=== PATIENT | male | born 1960 | race Caucasian/White ===

== ENCOUNTER → 2020-04-11 15:13 | Outpatient (BNVA) | payer OTHER, SELFPAY | PROVIDERS: PCP Internal Medicine; Referring Provider Internal Medicine; Visit Provider Internal Medicine Cardiovascular Disease | DX: Z76.89 Persons encountering health services in other specified circumstances (principal) ==

== ENCOUNTER → 2020-05-30 14:22 | Outpatient (BNVA) | payer OTHER, SELFPAY | PROVIDERS: PCP Internal Medicine; Visit Provider Internal Medicine Cardiovascular Disease ==

== ENCOUNTER 2020-11-27 16:49 | Outpatient (REF) | payer OTHER, SELFPAY ==
--- NOTE | ~2020-11-27 | XR_ITS ---
EXAMINATION: XR LUMBAR SPINE XR PELVIS CLINICAL INFORMATION: Pain. COMPARISON: None TECHNIQUE: Three views of the lumbar spine and one view of the pelvis. FINDINGS: LUMBAR SPINE: Bone alignment is normal. No fracture or dislocation is seen. There is mild degenerative disc disease at L5-S1. There is lower lumbar spine facet arthritis. There is evidence of atherosclerotic disease. PELVIS: No fracture, dislocation or bone lesion is seen. There is mild arthritis at both hip joints with small osteophytes. There is enthesopathy proliferative bone reaction adjacent to the iliac crests and inferior pubic rami. XR/XR pelvis 1-2V IMPRESSION: LUMBAR SPINE: Mild degenerative disc disease at L5-S1 and lower lumbar spine facet arthritis. PELVIS: Mild bilateral hip arthritis.
--- NOTE | ~2020-11-27 | XR_ITS ---
EXAMINATION: XR LUMBAR SPINE XR PELVIS CLINICAL INFORMATION: Pain. COMPARISON: None TECHNIQUE: Three views of the lumbar spine and one view of the pelvis. FINDINGS: LUMBAR SPINE: Bone alignment is normal. No fracture or dislocation is seen. There is mild degenerative disc disease at L5-S1. There is lower lumbar spine facet arthritis. There is evidence of atherosclerotic disease. PELVIS: No fracture, dislocation or bone lesion is seen. There is mild arthritis at both hip joints with small osteophytes. There is enthesopathy proliferative bone reaction adjacent to the iliac crests and inferior pubic rami. XR/XR lumbar spine 2-3V IMPRESSION: LUMBAR SPINE: Mild degenerative disc disease at L5-S1 and lower lumbar spine facet arthritis. PELVIS: Mild bilateral hip arthritis.
[2020-11-27 17:39] LABS: MANUAL DIFF FLAG NO
[2020-11-27 17:44] LABS: Basophils Absolute Auto 0.1 X10*3/uL (0.0-0.2); Basophils Percent Auto 0.7 % (0-2); Eosinophils Absolute Auto 0.7 X10*3/uL (0.0-0.4); Eosinophils Percent Auto 8.4 % (0-4); Hematocrit 40.2 % (42-52); Hemoglobin 14.1 g/dl (14.0-18.0); Imm Gran Abs Auto 0.03 X10*3/uL (0.00-0.03); Imm Gran Pct Auto 0.4 % (0.0-0.4); Lymphocytes Absolute Auto 2.8 X10*3/uL (1.2-4.9); Lymphocytes Percent Auto 33.8 % (20-40); Mean Corpuscular HGB Conc 35.1 g/dl (31.0-36.0); Mean Corpuscular Hemoglobin 31.5 pg (27.0-33.0); Mean Corpuscular Volume 89.9 fL (80-98); Mean Platelet Volume 10.6 fL (9.4-12.4); Monocytes Absolute Auto 0.7 X10*3/uL (0.1-1.2); Monocytes Percent Auto 8.4 % (2-11); Neutrophils Percent Auto 48.3 % (45-73); Platelet Count 207 X10*3/uL (160-400); Red Blood Count 4.47 X10*6/uL (4.60-5.80); Red Cell Distribution Width 12.5 % (11.0-16.0); White Blood Count 8.3 X10*3/uL (4.8-10.8)
[2020-11-27 18:02] LABS: Alanine Aminotransferase 45 U/L (0-40); Albumin Level 4.8 g/dL (3.5-5.0); Alkaline Phosphatase 77 U/L (39-117); Anion Gap 14 (12-20); Aspartate Amino Transferase 33 U/L (5-37); Bilirubin Total 0.4 mg/dL (0.0-1.0); Blood Urea Nitrogen 20 mg/dL (9-16); C Reactive Protein 0.09 mg/dL (< or = 0.50); Calcium 9.8 mg/dL (8.4-10.2); Carbon Dioxide 25 mmol/L (22-29); Chloride 107 mmol/L (96-108); Estimated Glomerular Filt Rate 53; Glucose Random 95 mg/dL (60-115); Potassium 4.7 mmol/L (3.3-5.1); Sodium 141 mmol/L (135-145); Total Protein 7.7 g/dL (6.5-8.0)
== END 2020-11-27 16:50 | disposition home or self-care (01) ==
LOC: HO.XRAY 16:49
PROVIDERS: PCP Internal Medicine; Visit Provider Internal Medicine
DX: M54.5 Low back pain (principal); R10.2 Pelvic and perineal pain
CPT/HCPCS: 36415; 72100; 72170; 80053; 82550; 85025; 86140

== ENCOUNTER 2020-12-26 16:32 | Outpatient (REF) | payer OTHER, SELFPAY ==
--- NOTE | ~2020-12-26 | CT_ITS ---
EXAMINATION: CT ABDOMEN AND PELVIS WITHOUT CONTRAST CLINICAL INFORMATION: Low back pain. Elevated CPK and creatinine COMPARISON: None TECHNIQUE: Multidetector volumetric imaging was performed from the superior aspect of the liver through the pubic symphysis. Sagittal and coronal reformatted images were obtained on the technologist's workstation. This CT examination was performed using dose optimization techniques as appropriate, variously including the following: *Automated exposure control *Adjustment of mA and/or kV according to patient size (this includes techniques or standardized protocols for targeted exams where dose is matched to indication/reason for exam; i.e. extremities or head) *Use of iterative reconstruction technique DLP: 665 mGy-cm FINDINGS: LUNG BASES: The lung bases are clear. There is coronary artery calcification. LIVER, GALLBLADDER, AND BILIARY TREE: The liver is normal in size, shape, and attenuation. No focal hepatic lesion or biliary ductal dilatation is present. The gallbladder is unremarkable with no evidence of radiopaque gallstones, gallbladder wall thickening, or obvious pericholecystic inflammatory changes. PANCREAS: Unremarkable. SPLEEN: Unremarkable. ADRENAL GLANDS: Unremarkable. KIDNEYS AND URETERS: There is a small 2 mm stone in the upper pole of the right kidney. There is mild fullness of the right renal pelvis. There is a 6 mm low-attenuation lesion exophytic to the posterior mid right kidney.. The left kidney is unremarkable. BLADDER: Unremarkable. GASTROINTESTINAL TRACT: The small and large bowel are unremarkable. The appendix is unremarkable. ABDOMINAL WALL: No significant hernia is appreciated. LYMPH NODES: Normal. VASCULAR: Unremarkable. PELVIC VISCERA: Unremarkable. OSSEOUS STRUCTURES: There are degenerative changes of the spine and hip joints. CT/CT abdomen pelvis wo con IMPRESSION: Small nonobstructing right renal stone. Probable small right renal cyst.
== END 2020-12-26 16:33 | disposition home or self-care (01) ==
LOC: HO.CT 16:32
PROVIDERS: Visit Provider Internal Medicine
DX: R10.11 Right upper quadrant pain (principal); M54.5 Low back pain; R74.8 Abnormal levels of other serum enzymes
CPT/HCPCS: 74176

== ENCOUNTER 2021-08-15 09:34 | Outpatient (REF) | payer OTHER, SELFPAY ==
--- NOTE | ~2021-08-15 | XR_ITS ---
EXAMINATION: XR SHOULDER, LEFT CLINICAL INFORMATION: Pain COMPARISON: None TECHNIQUE: AP external rotation, Grashey, scapular Y, and axillary views of the left shoulder. FINDINGS: Bone alignment is normal. No fracture or dislocation is seen. The glenohumeral joint is normal. There is arthritis at the acromioclavicular joint. There are soft tissue calcifications or ossifications adjacent to the greater tuberosity suggestive of calcific tendinitis or bursitis. XR/XR shoulder LT min 2V IMPRESSION: Arthritis at the acromioclavicular joint. Soft tissue calcifications adjacent to the greater tuberosity suggestive of calcific tendinitis or bursitis.
== END 2021-08-15 09:35 | disposition home or self-care (01) ==
LOC: HO.XRAY 09:34
PROVIDERS: PCP Internal Medicine; Visit Provider Internal Medicine
DX: M25.512 Pain in left shoulder (principal)
CPT/HCPCS: 73030

== ENCOUNTER → 2021-09-10 08:49 | Outpatient (BNVA) | payer OTHER, SELFPAY | PROVIDERS: PCP Internal Medicine; Visit Provider Orthopaedic Surgery | DX: M75.32 Calcific tendinitis of left shoulder (principal); M19.019 Primary osteoarthritis, unspecified shoulder | CPT/HCPCS: 20610; J1100 ==

== ENCOUNTER 2021-12-18 06:52 | Outpatient (REF) | payer OTHER, SELFPAY ==
[2021-12-18 06:56] LABS: MANUAL DIFF FLAG NO
[2021-12-18 07:09] LABS: Basophils Absolute Auto 0.1 X10*3/uL (0.0-0.2); Basophils Percent Auto 1.2 % (0-2); Eosinophils Absolute Auto 0.7 X10*3/uL (0.0-0.4); Eosinophils Percent Auto 9.6 % (0-4); Hematocrit 43.4 % (42.0-52.0); Hemoglobin 15.1 g/dl (14.0-18.0); Imm Gran Abs Auto 0.03 X10*3/uL (0.00-0.03); Imm Gran Pct Auto 0.4 % (0.0-0.4); Lymphocytes Absolute Auto 2.2 X10*3/uL (1.2-4.9); Lymphocytes Percent Auto 32.3 % (20-40); Mean Corpuscular HGB Conc 34.8 g/dl (31.0-36.0); Mean Corpuscular Volume 89.1 fL (80.0-98.0); Mean Platelet Volume 10.3 fL (9.4-12.4); Monocytes Absolute Auto 0.6 X10*3/uL (0.1-1.2); Monocytes Percent Auto 8.2 % (2-11); Neutrophils Absolute Auto 3.3 x10*3/uL (2.0-8.3); Neutrophils Percent Auto 48.3 % (45-73); Platelet Count 194 X10*3/uL (160-400); Red Blood Count 4.87 X10*6/uL (4.60-5.80); Red Cell Distribution Width 12.6 % (11.0-16.0); White Blood Count 6.8 X10*3/uL (4.8-10.8)
[2021-12-18 07:34] LABS: Alanine Aminotransferase 47 U/L (0-40); Albumin Level 4.5 g/dL (3.5-5.0); Alkaline Phosphatase 76 U/L (39-117); Anion Gap 15 (12-20); Aspartate Amino Transferase 32 U/L (5-37); Bilirubin Total 0.6 mg/dL (0.0-1.0); Blood Urea Nitrogen 18 mg/dL (9-16); Calcium 9.2 mg/dL (8.4-10.2); Carbon Dioxide 27 mmol/L (22-29); Chloride 105 mmol/L (96-108); Cholesterol 171 mg/dL; Estimated Glomerular Filt Rate > 60; Glucose Fasting 114 mg/dL (60-99); HDL Cholesterol 46 mg/dL; LDL Cholesterol Calculated 96 mg/dl; Potassium 4.8 mmol/L (3.3-5.1); Sodium 142 mmol/L (135-145); Total Protein 7.4 g/dL (6.5-8.0); Triglycerides 148 mg/dL
[2021-12-18 07:58] LABS: Prostate Specific Antigen 0.44 ng/mL (<0.05-4.0)
== END 2021-12-18 06:53 | disposition home or self-care (01) ==
LOC: HO.LAB 06:52
PROVIDERS: PCP Internal Medicine; Visit Provider Internal Medicine
DX: Z00.00 Encounter for general adult medical examination without abnormal findings (principal); Z12.5 Encounter for screening for malignant neoplasm of prostate
CPT/HCPCS: 36415; 80053; 80061; 84153; 85025

== ENCOUNTER 2022-02-05 14:35 | Outpatient (REF) | payer OTHER, SELFPAY ==
[2022-02-05 15:32] LABS: Estimated Average Glucose 105 mg/dL; Hemoglobin A1c % 5.3 %
[2022-02-05 15:55] LABS: Alanine Aminotransferase 37 U/L (0-40); Albumin Level 4.8 g/dL (3.5-5.0); Alkaline Phosphatase 70 U/L (39-117); Anion Gap 15 (12-20); Aspartate Amino Transferase 28 U/L (5-37); Bilirubin Total 0.7 mg/dL (0.0-1.0); Blood Urea Nitrogen 14 mg/dL (9-16); C Reactive Protein 0.06 mg/dL (< or = 0.50); Calcium 9.6 mg/dL (8.4-10.2); Carbon Dioxide 24 mmol/L (22-29); Chloride 106 mmol/L (96-108); Estimated Glomerular Filt Rate > 60; Glucose Random 97 mg/dL (60-115); Magnesium 2.2 mg/dL (1.6-2.6); Potassium 4.7 mmol/L (3.3-5.1); Sodium 140 mmol/L (135-145); Total Protein 7.5 g/dL (6.5-8.0)
== END 2022-02-05 14:36 | disposition home or self-care (01) ==
LOC: HO.LAB 14:35
PROVIDERS: PCP Internal Medicine; Visit Provider Internal Medicine
DX: R42 Dizziness and giddiness (principal); I10 Essential (primary) hypertension; R73.03 Prediabetes
CPT/HCPCS: 36415; 80053; 83036; 83735; 86140

== ENCOUNTER → 2022-03-26 13:58 | Outpatient (BNVA) | payer OTHER, SELFPAY | PROVIDERS: PCP Internal Medicine; Visit Provider Internal Medicine Cardiovascular Disease | DX: I25.10 Atherosclerotic heart disease of native coronary artery without angina pectoris (principal); I10 Essential (primary) hypertension | CPT/HCPCS: 93005 ==

== ENCOUNTER 2022-08-05 14:12 | Outpatient (REF) | payer OTHER, SELFPAY ==
--- NOTE | ~2022-08-05 | XR_ITS ---
EXAMINATION: XR FOOT, LEFT CLINICAL INFORMATION: Left foot pain. COMPARISON: None available. TECHNIQUE: AP, lateral, and oblique views of the left foot. FINDINGS: There is no visible acute fracture, dislocation or subluxation. Small retrocalcaneal enthesophyte is seen. The ankle mortise and subtalar joints are normal. No visible fracture or dislocation seen. Mild loss of PIP and DIP joint space is seen but no bony erosive changes. There is a fracture fragment lateral to the DIP joint 4th digit likely old injury. Vascular artery calcifications seen throughout the ankle. No soft tissue swelling seen. XR/XR foot LT min 3V IMPRESSION: Small retrocalcaneal enthesophyte. No visible acute fracture, dislocation or subluxation seen. Small bone fragment lateral to the DIP joint 4th digit likely old injury. Correlate clinically. No abnormal soft tissue swelling. Especially no abnormality seen along the proximal foot.
== END 2022-08-05 14:13 | disposition home or self-care (01) ==
LOC: HO.XRAY 14:12
PROVIDERS: PCP Internal Medicine; Visit Provider Internal Medicine
DX: M79.672 Pain in left foot (principal)
CPT/HCPCS: 73630

== ENCOUNTER 2022-11-27 16:50 | Outpatient (REF) | payer OTHER, SELFPAY ==
[2022-11-27 17:03] LABS: MANUAL DIFF FLAG NO
[2022-11-27 18:29] LABS: Basophils Absolute Auto 0.1 X10*3/uL (0.0-0.2); Basophils Percent Auto 0.8 % (0-2); Eosinophils Absolute Auto 0.5 X10*3/uL (0.0-0.4); Eosinophils Percent Auto 5.2 % (0-4); Hemoglobin 15.6 g/dl (14.0-18.0); Imm Gran Abs Auto 0.02 X10*3/uL (0.00-0.03); Imm Gran Pct Auto 0.2 % (0.0-0.4); Lymphocytes Percent Auto 21.6 % (20-40); Mean Corpuscular HGB Conc 34.7 g/dl (31.0-36.0); Mean Corpuscular Hemoglobin 31.6 pg (27.0-33.0); Mean Corpuscular Volume 91.1 fL (80.0-98.0); Mean Platelet Volume 10.6 fL (9.4-12.4); Monocytes Absolute Auto 0.7 X10*3/uL (0.1-1.2); Neutrophils Absolute Auto 5.9 x10*3/uL (2.0-8.3); Neutrophils Percent Auto 64.2 % (45-73); Platelet Count 192 X10*3/uL (160-400); Red Blood Count 4.94 X10*6/uL (4.60-5.80); Red Cell Distribution Width 12.7 % (11.0-16.0); White Blood Count 9.2 X10*3/uL (4.8-10.8)
[2022-11-27 18:34] LABS: Alanine Aminotransferase 42 U/L (0-40); Albumin Level 4.6 g/dL (3.5-5.0); Alkaline Phosphatase 75 U/L (39-117); Anion Gap 18 (12-20); Aspartate Amino Transferase 28 U/L (5-37); Bilirubin Total 0.6 mg/dL (0.0-1.0); Blood Urea Nitrogen 16 mg/dL (9-16); Calcium 9.8 mg/dL (8.4-10.2); Carbon Dioxide 21 mmol/L (22-29); Chloride 106 mmol/L (96-108); Estimated Glomerular Filt Rate > 60; Glucose Random 100 mg/dL (60-115); Potassium 4.2 mmol/L (3.3-5.1); Sodium 141 mmol/L (135-145); Total Protein 7.8 g/dL (6.5-8.0)
== END 2022-11-27 16:51 | disposition home or self-care (01) ==
LOC: HO.LAB 16:50
PROVIDERS: PCP Internal Medicine; Visit Provider Internal Medicine
DX: R21 Rash and other nonspecific skin eruption (principal); T14.8XXA Other injury of unspecified body region, initial encounter; W57.XXXA Bitten or stung by nonvenomous insect and other nonvenomous arthropods, initial encounter
CPT/HCPCS: 36415; 80053; 85025; 86140

== ENCOUNTER 2022-12-03 14:06 | Outpatient (REF) | payer OTHER, SELFPAY ==
[2022-12-04 15:13] LABS: Lyme Blot 4.57 index
[2022-12-04 16:05] LABS: Lyme Abs Screen POSITIVE
[2022-12-04 21:49] LABS: 18 KD (IgG) Band NON-REACTIVE; 23 KD (IgG) Band NON-REACTIVE; 23 KD (IgM) Band REACTIVE; 28 KD (IgG) Band NON-REACTIVE; 30 KD (IgG) Band NON-REACTIVE; 39 KD (IgM) Band NON-REACTIVE; 39KD (IgG) Band NON-REACTIVE; 41 KD (IgM) Band NON-REACTIVE; 41KD (IgG) Band NON-REACTIVE; 45 KD (IgG) Band NON-REACTIVE; 58 KD (IgG) Band REACTIVE; 66 KD (IgG) Band NON-REACTIVE; 93 KD (IgG) Band NON-REACTIVE; Lyme IgG Blot Interp NEGATIVE (NEGATIVE); Lyme IgM Blot Interp NEGATIVE (NEGATIVE)
== END 2022-12-03 14:07 | disposition home or self-care (01) ==
LOC: HO.LAB 14:06
PROVIDERS: PCP Internal Medicine; Visit Provider Internal Medicine
DX: S40.861A Insect bite (nonvenomous) of right upper arm, initial encounter (principal)
CPT/HCPCS: 36415; 86617; 86618

== ENCOUNTER 2023-03-18 12:23 | Outpatient (REF) | payer OTHER, SELFPAY ==
[2023-03-18 14:39] LABS: Cholesterol 129 mg/dL (<200); HDL Cholesterol 39 mg/dL (>40); LDL Cholesterol Calculated 63 mg/dL (<100); Triglycerides 138 mg/dL (<150)
[2023-03-20 17:29] LABS: CRP High Sensitivity 0.5 mg/L
== END 2023-03-18 12:24 | disposition home or self-care (01) ==
LOC: HO.LAB 12:23
PROVIDERS: PCP Internal Medicine; Visit Provider Internal Medicine Cardiovascular Disease
DX: I25.10 Atherosclerotic heart disease of native coronary artery without angina pectoris (principal); E78.5 Hyperlipidemia, unspecified
CPT/HCPCS: 36415; 80061; 86141

== ENCOUNTER 2023-03-20 14:47 | Outpatient (AMB) | payer OTHER, SELFPAY ==
[2023-03-20 14:56] VITALS: BP 140/86; PULSE 63; BMI 31.4
--- NOTE | 2023-03-20 14:56 | A.OFFVIS_ITS ---
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 He said he ran out of his metoprolol for about 10-11 months. He has not been taking. Is notice some elevated blood pressures systolic 130/88 rate although he thinks the other times blood pressures are within normal limits. He has no cardiac symptoms. Remains active and still plays ice hockey with his peers and goes for hiking [place] a mountain [place] 2-3 months. Denies any exertional chest pain. No shortness of breath, orthopnea, PND. No lightheadedness, syncope. 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 [employer] Review of Systems Const Denies chills, Denies fatigue, Denies fever(s), Denies frequent falls, Denies weakness, Denies weight gain and Denies weight loss ENT Denies dizziness Card Denies chest pain, Denies leg edema, Denies lightheadedness, Denies palpitations, Denies dyspnea, Denies dyspnea on exertion, Denies orthopnea and Denies other (loss of consciousness) Resp Denies cough, Denies dyspnea and Denies dyspnea on exertion GI Denies hematochezia and Denies change in stool character Musc Denies abnormal gait, Denies muscle weakness, Denies numbness, Denies radiating pain into limb and Denies tingling Neuro Denies abnormal gait, Denies dizziness, Denies frequent falls, Denies numbness, Denies tingling and Denies weakness Endo Denies fatigue and Denies palpitations Physical Exam Vital Signs: Last Vital Signs Pulse 63 03/20/23 14:56 BP 140/86 H 03/20/23 14:56 BMI result Body Mass Index 31.4 Const General: cooperative, comfortable, no acute distress, well developed, alert and awake Nutritional Appearance: well nourished and overweight Orientation/consciousness: patient oriented x3 Limitations: no limitations HEENT Head: Yes normocephalic and Yes atraumatic Eyes General: appearance normal, both eyes and all related structures Neck Neck: Yes trachea midline, Yes supple and Yes no JVD Chest Chest palpation & inspection: normal inspection of the chest Resp Effort & Inspection: normal respiratory effort Auscultation: clear to auscultation bilaterally Cardio Jugular venous distension: no JVD Palpation: normal PMI Rate: regular rate Rhythm: regular rhythm Heart sounds: S1 normal heart sound present, S2 normal heart sound present, no click, no gallops and Murmur heart sound present systolic early GI Auscultation: normal bowel sounds Skin General skin exam: no rashes or lesions noted Neuro General: patient oriented x3 and no focal motor deficits Extrem General: Yes no clubbing, cyanosis or edema Psych Appearance: grossly normal Affect: Anxious affect present Assessment & Plan Assessment & Plan (1) CAD (coronary artery disease): Code(s): I25.10 - Atherosclerotic heart disease of [place] coronary artery without angina pectoris Plan: CAD status post drug-eluting stent to RCA. This was done for acute coronary syndrome. He has acid a stenosis LAD but currently has no symptoms related to it. No further workup is indicated at this point time. Consider follow-up myocardial perfusion imaging next year. Continue aggressive risk factor modification importance of this was discussed. LDL is well optimized at 63 mg/dL. Continue lifelong aspirin therapy. More aggressive blood pressure control is recommended. Advised to call me with any new symptoms. There is a presence of ejection systolic murmur which is suggestive either aortic valve sclerosis or early mild stenosis. Will obtain echocardiogram in near future. (2) HTN (hypertension): Code(s): I10 - Essential (primary) hypertension Plan: Hypertension which is borderline optimized. Today's blood pressure reading was elevated. Advised to monitor blood pressure for the next month at home. Change amlodipine to 10 mg daily. Advise low-salt diet. Advised stress mitigation strategies. Advised to drop of the log in a month's time to see whether he would benefit from additional therapy. May consider addition of angiotensin receptor patricia if blood pressure remains elevated. Follow up in the clinic in 1 year's time, sooner p.r.n.. Thank you for allowing me to partake in his care Orders: Orders CA echo transthoracic complete Today I25.10 - Atherosclerotic heart disease of [place] coronary artery without angina pectoris, R01.1 - Cardiac murmur, unspecified Medications: New amlodipine 10 mg PO DAILY 90 tabs 3RF Refilled rosuvastatin 40 mg PO DAILY 90 days 90 tabs 3RF Discontinued amlodipine Discontinued Reason: Doctor's Order 5 mg PO BID 90 days 180 tabs 1RF Coding Level of Care Code Est Pt Level 4 (31779) Diagnoses CAD (coronary artery disease) I25.10 HTN (hypertension) I10
== END 2023-03-20 15:18 | disposition home or self-care (01) ==
PROVIDERS: Visit Provider Internal Medicine Cardiovascular Disease
DX: I25.10 Atherosclerotic heart disease of native coronary artery without angina pectoris (principal); I10 Essential (primary) hypertension
CPT/HCPCS: 93010; 99214

== ENCOUNTER → 2023-03-20 14:47 | Outpatient (BNVA) | payer OTHER, SELFPAY | PROVIDERS: Visit Provider Internal Medicine Cardiovascular Disease | DX: I25.10 Atherosclerotic heart disease of native coronary artery without angina pectoris (principal); I10 Essential (primary) hypertension | CPT/HCPCS: 93005 ==

== ENCOUNTER → 2023-04-16 08:03 | Outpatient (REF) | payer OTHER, SELFPAY ==
--- NOTE | 2023-04-16 08:05 | CA_ITS ---
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 Study Quality: Technically Difficult ECG Rhythm: Sinus Conclusions: - 1. Normal LV ejection fraction of 60 65% with grade 1 diastolic dysfunction 2. Calcific aortic valve changes noted with early mild aortic stenosis 3. Mildly dilated ascending aorta 3.8 cm 4. No gross pericardial effusion Findings Left Ventricle Normal left ventricular size, thickness, and systolic function. The visually estimated ejection fraction is between 60-65%. Spectral Doppler is indicative of an impaired relaxation filling pattern. E/E prime ratio is <8, consistent with normal filling pressures. Evidence suggests grade I (mild) diastolic dysfunction. There is mild septal asymmetric hypertrophy. Peak GLS is -18.1%, within normal limits. Wall Motion Rest Echo Findings The basal inferior and basal inferoseptal segments are hypokinetic. All other scored wall segments showed normal motion. Right Ventricle Normal right ventricular cavity size and systolic function. Atria The left atrium is mildly dilated. The right atrium is normal in size. Aortic Valve There is mild calcification of the aortic valve. There is mild thickening of the aortic valve. The peak aortic gradient is 22 mmHg.The mean gradient is 11 mmHg. There is no aortic valve regurgitation. Mitral Valve There is mild anterior and posterior mitral leaflet thickening. There is mild mitral annular calcification. There is trace mitral valve regurgitation. There is no mitral valve stenosis. Pulmonic Valve The pulmonic valve is likely normal. Tricuspid Valve Normal tricuspid valve structure. Tricuspid regurgitation envelope is inadequate for calculation of right ventricular systolic pressure. Normal right atrial pressure. Great Vessels The pulmonary artery was not well visualized. There is mild dilatation of the ascending aorta measuring 3.80 cm. Venous The inferior vena cava is normal in size and collapses greater than 50% with inspiration. Pericardium/Pleural There is no evidence of pericardial effusion. Prior Study Comparison Changes noted compared to prior study dated: 03/11/2019. Increased gradient across aortic valve is been suggestive early aortic stenosis. Mildly dilated ascending aorta Measurements 2D Linear Measurements IVSd: 1.66 0.6-0.9/0.6-1.0 cm LVIDd: 4.71 3.9-5.3/4.2-5.9 cm LVIDd Index: 2.10 2.4-3.2/2.2-3.1 cm/m2 LVIDs: 3.35 2.0-3.6 cm LVPWd: 1.09 0.7-1.1 cm LA Diam: 3.60 2.7-3.8/3.0-4.0 cm LAIDs Index: 1.61 1.5-2.3 cm/m2 LV Mass: 323.10 67-162/88-224 g LV Mass Index: 144.24 43-95/49-115 g/m2 LVOT Diam: 2.40 3.0+(-)1.3 cm 2D Systolic Function EF 4C: 64.00 >55% EF 2C: 65.30 >55% EF BiP: 64.70 >55% Mitral Valve MV Pk E: 0.92 MV PK A: 0.74 MV Decel Time: 254.00 E/A: 1.20 E'Lateral: 10.40 E'Medial: 7.94 E/E' Med: 11.50 E/E' Lat: 8.80 PHT: 74.00 MVA PHT: 2.97 Decel Love: 3.62 Aortic Valve AoV Pk Esteban: 2.32 AoV Mn Esteban: 1.62 AoV VTI: 0.53 AoV Pk Grad: 22.00 Aov Mn Grad: 11.00 BUD Cont.VTI: 2.13 LVOT LVOT Pk Esteban: 1.15 LVOT Mn Esteban: 0.77 LVOT VTI: 0.25 LVOT Pk Grad: 5.00 LVOT Mn Grad: 3.00 LVOT Diam: 2.40 LVOT Area: 4.52 Diastolic Function MV Pk E: 0.92 MV Pk A: 0.74 E/A: 1.20 E'Medial: 7.94 E/E' Med: 11.50 E' Laterial: 10.40 E/E' Lat: 8.80 Right Ventricle TAPSE (mm): 23.90 TVS' Esteban: 13.60 Tricuspid Valve RA Press: 3.00 Great Vessels Aorta Sinus of Valsalva: 3.59 2.0-3.[address] [place]: 2.37 1.7-3.4 cm Ao Asc: 3.80 2.1-3.4 cm Ao Arch: 3.30 Updated in Other Vendor System with Status of Final Sacha Edward MD electronically signed on 04/16/2023 3:43:43 PM with status of Final
== END ==
LOC: HO.CARD 08:03
PROVIDERS: PCP Internal Medicine; Visit Provider Internal Medicine Cardiovascular Disease
DX: I25.10 Atherosclerotic heart disease of native coronary artery without angina pectoris (principal); R01.1 Cardiac murmur, unspecified
CPT/HCPCS: 93306; 93356

== ENCOUNTER → 2023-04-16 08:05 | Outpatient (BNV) | payer OTHER, SELFPAY | PROVIDERS: PCP Internal Medicine; Visit Provider Internal Medicine Cardiovascular Disease | DX: I35.0 Nonrheumatic aortic (valve) stenosis (principal); I34.81 Nonrheumatic mitral (valve) annulus calcification | CPT/HCPCS: 93306 ==

== ENCOUNTER 2024-02-27 07:17 | Day surgery (SDC) | payer OTHER, SELFPAY ==
[2024-02-25 11:36] VITALS: BMI 31.6
[2024-02-27 07:57] VITALS: BP 145/85; PULSE 58; RESP 18; TEMP 36.6; O2SAT 96; BMI 31.5
[2024-02-27] MEDS: Lactated Ringers 1,000 ML 100 ML IVCONT (08:11)
--- NOTE | 2024-02-27 09:01 | P.HPSUR_ITS ---
Pre-Procedural Eval Section A - 24 Hr Update-Section A only Date of Service: 02/27/24 Section B - Complete if H&P > 30 days Chief Complaint: Encounter for screening for malignant neoplasm of Details of Present Illness: see H&P no changes Relevant Family History (Specify if Yes): No Relevant Social History: None Present Medications: see Short Stay Collaborative assessment Medical History: No relevant PMH History of Previous Operations: No relevant previous surgery Allergies: Allergies Allergy/AdvReac Type Severity Reaction Status Date / Time No Known Allergies Allergy Verified 09/10/21 08:55 Review of Systems Sugical H&P ROS: Negative: Constitution, Cardiovascular, Respiratory, Neurological, Psychiatric, Hem-Onc, Allergic/Immunologic, Gastrointestinal, Genitourinary, Musculoskeletal, Integumentary, Endocrine and Eyes/Ears/No se/Throat Exam Surgical H&P Exam: Normal: HEENT, Normal: Heart, Normal: Lungs, Normal: Extremities, Normal: Abdomen, Normal: Skin and Normal: Neurological Plan Diagnosis/Plan: Unchanged I have reviewed the history and physical and performed a pertinent physical examination on my patient. No changes have occurred unless specified. Time Spent With Patient Time: Total time managing care of this patient today ____ minutes.
--- NOTE | 2024-02-27 09:05 | HO.ANESPROP2 ---
Documented by User: Elyse Espinosa NP 02/26/24 08:50 HPI - Anesthesia Eval Consult details Narrative: 63yo M for Colonoscopy Follows [facility] [place] Cardiology for CAD s/p stent 2019. Early aortic stenosis. Sees yearly. Last seen 03/2023, stable. Echo post visit - only change is early aortic stenosis. [facility] Active Problems Active Problems: All Active Problems Acromioclavicular arthrosis (Acute) Calcific tendonitis of left shoulder (Acute) Osteoarthritis of right shoulder (Acute) Atypical angina (Acute) CAD (coronary artery disease) (Acute) HTN (hypertension) (Acute) Hyperlipidemia (Acute) Past Medical History Medical History (Updated 02/25/24 @ 11:24 by Vania Enriquez RN) Arthritis GERD (gastroesophageal reflux disease) HTN (hypertension) Hyperlipidemia CAD (coronary artery disease) Family History Family History Father CVD (cardiovascular disease) Mother CVD (cardiovascular disease) HTN (hypertension) Surgical History Surgical History (Updated 02/25/24 @ 11:25 by Vania Enriquez RN) History of heart artery stent Hx of cardiac cath Social History Social History Patient Tobacco Use Status: Never used Tobacco Are you DNR?: No Advance Directives: No Advance Directives Information Provided: Yes Current occupational status: employed 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, 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 [employer] Allergies Allergy/AdvReac Type Severity Reaction Status Date / Time No Known Allergies Allergy Verified 09/10/21 08:55 Home Medications ?Medication ?Instructions ?Recorded ?Confirmed ?Last Taken ?Type amlodipine 5 mg-benazepril 10 mg 1 cap PO DAILY 02/25/24 02/25/24 Unknown History capsule cholecalciferol (vitamin D3) 125 5,000 unit PO DAILY 02/25/24 02/25/24 Unknown History mcg (5,000 unit) tablet (Vitamin D3) multivitamin 1 tab PO DAILY 02/25/24 02/25/24 Unknown History omeprazole 20 mg tablet,delayed 20 mg PO DAILY 02/25/24 02/25/24 Unknown History release Exam Height,Weight and Vital Signs: Height 6 ft Weight 105.687 kg Narrative Narrative: ECHO 04/2023 Conclusions: - 1. Normal LV ejection fraction of 60 65% with grade 1 diastolic dysfunction 2. Calcific aortic valve changes noted with early mild aortic stenosis 3. Mildly dilated ascending aorta 3.8 cm 4. No gross pericardial effusion Assessment and Plan Assessment Anesthesia Assessment: Chart Reviewed Documented by User: Bhavani Gibson DO 02/27/24 09:05 [facility] Past Medical History Medical History (Updated 02/25/24 @ 11:24 by Vania Enriquez, RN) Arthritis GERD (gastroesophageal reflux disease) HTN (hypertension) Hyperlipidemia CAD (coronary artery disease) Family History Family History Father CVD (cardiovascular disease) Mother CVD (cardiovascular disease) HTN (hypertension) Family history of problems with anesthesia: No Surgical History Surgical History (Updated 02/25/24 @ 11:25 by Vania Enriquez RN) History of heart artery stent Hx of cardiac cath History of Problems with Anesthesia: No Social History Social History Patient Tobacco Use Status: Never used Tobacco Are you DNR?: No Advance Directives: No Advance Directives Information Provided: Yes Current occupational status: employed 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, 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 [employer] Allergies Allergy/AdvReac Type Severity Reaction Status Date / Time No Known Allergies Allergy Verified 09/10/21 08:55 Home Medications ?Medication ?Instructions ?Recorded ?Confirmed ?Last Taken ?Type amlodipine 5 mg-benazepril 10 mg 1 cap PO DAILY 02/25/24 02/25/24 Unknown History capsule cholecalciferol (vitamin D3) 125 5,000 unit PO DAILY 02/25/24 02/25/24 Unknown History mcg (5,000 unit) tablet (Vitamin D3) multivitamin 1 tab PO DAILY 02/25/24 02/25/24 Unknown History omeprazole 20 mg tablet,delayed 20 mg PO DAILY 02/25/24 02/25/24 Unknown History release Exam Exam Date and Time: 0903 Height,Weight and Vital Signs: Height 6 ft Weight 105.687 kg Vital Signs Temperature 97.8 F 02/27/24 07:57 Pulse Rate 58 02/27/24 07:57 Respiratory Rate 18 02/27/24 07:57 Blood Pressure 145/85 H 02/27/24 07:57 Pulse Oximetry 96 02/27/24 07:57 Oxygen Delivery Method Room Air 02/27/24 07:57 Temperature 97.8 F 02/27/24 07:57 Pulse Rate 58 02/27/24 07:57 Respiratory Rate 18 02/27/24 07:57 Blood Pressure 145/85 H 02/27/24 07:57 Pulse Oximetry 96 02/27/24 07:57 Oxygen Delivery Method Room Air 02/27/24 07:57 Airway Mallampati Class: II TM Dist: >3cm Neck ROM: Full Loose/Missing/Broken Teeth: No (patient denies any loose or broken teeth) Heart: S1S2 Lungs: CTAB Assessment and Plan Assessment Anesthesia Assessment: Anesthesia Plan Discussed and Chart Reviewed Final Anesthetic Review Family History of Problems with Anesthesia: No History of Problems with Anesthesia: No NPO: Yes ASA Class: II Final Preanesthetic Review: No Changes in Pt Med Stat, Meds/Allgs Chart Reviewed, Consent Obtained/Reviewed and Anes Risks/Benef Reviewed Patient Risk: Low Procedure Risk: Low Anesthetic Plan Anesthetic Plan: MAC: and Agree w/ Assess. and Plan Disposition: Standard PACU
[2024-02-27 09:36] VITALS: BP 112/67; PULSE 71; RESP 16; TEMP 36.4; O2SAT 97
[2024-02-27 09:51] VITALS: BP 127/74; PULSE 65; RESP 18; TEMP 36.3; O2SAT 98
--- NOTE | 2024-02-27 10:56 | OP_ITS ---
DATE OF SERVICE: 02/27/2024 SURGEON: Shravan Alberto MD INDICATIONS: Colon cancer screening. PREOPERATIVE DIAGNOSIS: POSTOPERATIVE DIAGNOSIS: PROCEDURE PERFORMED: Colonoscopy to the cecum with a snare polypectomy. ESTIMATED BLOOD LOSS: COMPLICATIONS: ANESTHESIA: Monitored anesthesia care. ASSISTANTS: SPECIMENS: DESCRIPTION OF PROCEDURE: A history and physical was performed. The risks and benefits of the procedure were explained to the patient. Informed consent was obtained. The patient was placed in the left lateral decubitus position. A digital rectal exam was performed and was found to be normal. The Olympus pediatric video colonoscope was introduced into the rectum and advanced to the cecum. The cecum was identified by transillumination, palpation, identification of the ileocecal valve. Examination was performed. The scope was removed. He tolerated the procedure well and was returned to the recovery area in stable condition. FINDINGS: The terminal ileum was not examined. The visualized colonic mucosa was normal. The quality of the prep was fair with some retained liquid stool, which was washed and suctioned. A single polyp measuring less than 10 mm was identified at 50 cm from the anal verge, removed with a snare. No other polyps were identified. Retroflexed examination was normal. IMPRESSION: Colon polyp. RECOMMENDATION: 1. Follow up the biopsy results. MD BRANDI Mcdonald/MARLIYNL / [id number]
== END 2024-02-27 10:12 | disposition home or self-care (01) ==
PROVIDERS: PCP Internal Medicine; Visit Provider Internal Medicine Gastroenterology
PROC: 0DJD8ZZ Inspection of Lower Intestinal Tract, Via Natural or Artificial Opening Endoscopic (ICD-10-PCS; CPT 45378; principal; 2024-02-27 09:20)
DX: Z12.11 Encounter for screening for malignant neoplasm of colon (principal); Z86.0101 Personal history of adenomatous and serrated colon polyps; D12.5 Benign neoplasm of sigmoid colon; I10 Essential (primary) hypertension; E78.5 Hyperlipidemia, unspecified; I25.10 Atherosclerotic heart disease of native coronary artery without angina pectoris; Z95.5 Presence of coronary angioplasty implant and graft; K21.9 Gastro-esophageal reflux disease without esophagitis; M19.90 Unspecified osteoarthritis, unspecified site; Z79.82 Long term (current) use of aspirin; Z79.899 Other long term (current) drug therapy
CPT/HCPCS: 45385; 88305; J2003; J2371; J2704

== ENCOUNTER 2024-03-16 14:55 | Outpatient (AMB) | payer OTHER, SELFPAY ==
--- NOTE | 2024-03-16 14:55 | A.OFFVIS_ITS ---
Vital Signs 03/16/24 14:56 Height 6 ft Weight 236 lb 12.423 oz BMI 32.1 BP 130/72 Blood Pressure Location Lt brachial Position Sitting Pulse 60 Intake Visit Reasons: 1 year fu Intake Note: 1 yr f/u. Pt has no concerns. 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 He is remaining extremely functional. Plays ice hockey once a week without any exertional symptoms. Recently traveled to [place] [place] and he said he walk 52 miles in 4 days. No symptoms related to it. Taking all his medications. No recent blood work about his lipids. He says blood pressure is generally remains well controlled. Denies any exertional chest pain or shortness of breath. No heart failure symptoms. No prolonged palpitation irregular heartbeat. 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 [employer] Review of Systems Const Denies chills, Denies fatigue, Denies fever(s), Denies weight gain and Denies weight loss ENT Denies dizziness Card Denies chest pain, Denies leg edema, Denies lightheadedness, Denies palpitations, Denies dyspnea on exertion, Denies orthopnea and Denies other Resp Denies cough and Denies dyspnea on exertion GI Denies hematochezia and Denies change in stool character Musc Denies abnormal gait, Denies muscle weakness, Denies numbness, Denies radiating pain into limb and Denies tingling Neuro Denies abnormal gait, Denies dizziness, Denies numbness and Denies tingling Endo Denies fatigue and Denies palpitations Physical Exam Vital Signs: Last Vital Signs Pulse 60 03/16/24 14:56 BP 130/72 03/16/24 14:56 BMI result Body Mass Index 32.1 Const General: cooperative, comfortable, no acute distress, well developed, alert and awake Nutritional Appearance: well nourished and overweight Orientation/consciousness: patient oriented x3 Limitations: no limitations HEENT Head: Yes normocephalic and Yes atraumatic Eyes General: appearance normal, both eyes and all related structures Neck Neck: Yes trachea midline, Yes supple and Yes no JVD Chest Chest palpation & inspection: normal inspection of the chest Resp Effort & Inspection: normal respiratory effort Auscultation: clear to auscultation bilaterally Cardio Jugular venous distension: no JVD Palpation: normal PMI Rate: regular rate Rhythm: regular rhythm Heart sounds: S1 normal heart sound present, S2 normal heart sound present, no click, no gallops and Murmur heart sound present systolic early GI Auscultation: normal bowel sounds Skin General skin exam: no rashes or lesions noted Neuro General: patient oriented x3 and no focal motor deficits Extrem General: Yes no clubbing, cyanosis or edema Psych Appearance: grossly normal Affect: Anxious affect present Office Procedures EKG Details: EKG shows normal sinus rhythm with normal EKG 36573-[id number], Complete Assessment & Plan Assessment & Plan (1) CAD (coronary artery disease): Code(s): I25.10 - Atherosclerotic heart disease of [place] coronary artery without angina pectoris Category: Medical Plan: Stable coronary artery disease with drug-eluting stent to RCA 5 years ago. Also disease in the LAD. Although coronary disease appears to be stable. He maintains high level activity without any symptoms. Denies any exertional chest pain. At this point time management will be continue with medical therapy. Continue lifelong aspirin therapy. Continue high-intensity statin therapy. Target goal LDL closer to 60 mg/dL. Continue aggressive blood pressure control. Encouraged to continue to maintain activity level as tolerated. Advised to call me with any new symptoms. (2) HTN (hypertension): Code(s): I10 - Essential (primary) hypertension Category: Medical Plan: Hypertension which is currently well optimized with amlodipine therapy. Continue the same. Importance of good blood pressure control was discussed. Advise low-salt diet. Advised to monitor blood pressure at home and maintain a log. Goal blood pressure less than 130/84. Advised to maintain activity level. Stress mitigation strategies were discussed. Follow up in the clinic in 1 year's time, sooner p.r.n.. Thank you for allowing me to partake in his care Coding Level of Care Code Est Pt Level 4 (44855) Complex EM visit Add On G2211 Diagnoses CAD (coronary artery disease) I25.10 HTN (hypertension) I10 CPT Codes EKG - CPT: 45883-[id number], Complete ([id number])
[2024-03-16 14:56] VITALS: BP 130/72; PULSE 60; BMI 32.1
== END 2024-03-16 15:24 | disposition home or self-care (01) ==
PROVIDERS: PCP Internal Medicine; Visit Provider Internal Medicine Cardiovascular Disease
DX: I25.10 Atherosclerotic heart disease of native coronary artery without angina pectoris (principal); I10 Essential (primary) hypertension
CPT/HCPCS: 93010; 99214

== ENCOUNTER → 2024-03-16 14:55 | Outpatient (BNVA) | payer OTHER, SELFPAY | PROVIDERS: PCP Internal Medicine; Visit Provider Internal Medicine Cardiovascular Disease | DX: I25.10 Atherosclerotic heart disease of native coronary artery without angina pectoris (principal); I10 Essential (primary) hypertension; Z79.82 Long term (current) use of aspirin; Z79.899 Other long term (current) drug therapy | CPT/HCPCS: 93005 ==

== ENCOUNTER 2024-04-20 07:07 | Outpatient (REF) | payer OTHER, SELFPAY ==
--- OUTSIDE RECORDS SUMMARY | 2024-04-20 07:09 | XMS_ITS ---
Author Organization [facility] Address [address] [place] [address] Care Team Providers Care Manager Systems Name Role Phone Raphael Campbell MD Primary Care Provider Shravan Conroy Jr REASON FOR VISIT screening Encounters Encounter Location Date Provider Diagnosis [facility] Outpatient [address] [place] [address] [id number] 02/27/2024 Shravan Alberto Jr Colon cancer screening Z12.11 and Colon polyps K63.5 ASSESSMENTS Encounter Date Diagnosis Assessment Notes Treatment Notes Treatment Clinical Notes 02/27/2024 Colon cancer screening (ICD-10 - Z12.11) 02/27/2024 Colon polyps (ICD-10 - K63.5) PLAN OF TREATMENT No Information
--- OUTSIDE RECORDS SUMMARY | 2024-04-20 07:09 | XMS_ITS ---
Author Organization [facility] Address [address] [place] [address] Care Team Providers Care Discovery Manager Name Role Phone Raphael Campbell MD Primary Care Provider UnavailShravan Anaya Jr REASON FOR VISIT pathology Encounters Encounter Location Date Provider Diagnosis [facility] [address] [place] [address] 03/04/2024 Shravan Alberto Jr PLAN OF TREATMENT No Information
--- OUTSIDE RECORDS SUMMARY | 2024-04-20 07:10 | XMS_ITS ---
Author Organization [facility] Address [address] [place] [phone] Care Team Providers Care Tunnel Inspector Name Role Phone Raphael Campbell MD Primary Care Provider UnavailShravan Anaya Jr REASON FOR VISIT cardiology clearance Encounters Encounter Location Date Provider Diagnosis [facility] [address] [place] [address] 02/26/2024 Shravan Alberto Jr PLAN OF TREATMENT No Information
--- OUTSIDE RECORDS SUMMARY | 2024-04-20 07:10 | XMS_ITS | Patient Health Record ---
Author Organization [facility] Address [address] [place] [address] Care Team Providers Care School Standards Coach Name Role Phone Raphael Campbell MD Primary Care Provider Shravan Conroy Jr Unavailable ALLERGIES No Known Allergies RESULTS Component Value Reference Range Notes Pathology Reviewed date:03/04/2024 07:49:11 AM Interpretation: Performing Lab:[facility], [address] [place] [id number] Notes/Report: REASON FOR REFERRAL No Information MEDICATIONS Medication SIG (Take, Route, Frequency, Duration) Notes Start Date End Date Status Omeprazole 20 MG 1 capsule Orally Onc e a day for 30 day(s) Active Rosuvastatin Calcium 40 MG 1 tablet Oral ly Once a day for 30 day(s) Active MiraLax (colon prep) 17 GM/SCOOP mixed with Gatorade or Crystal Light Orally begin at 5:00 p.m. the day before the procedure for 1 day 12/31/2023 Active amLODIPine Besy-Benazepril HCl 5-10 MG as directed Orally Active Multivitamin Adult - as directed Orally Active Vitamin D3 Maximum Strength 5000 UNIT 1 capsule Orally Once a day for 30 day(s) Active Aspirin Adult Low Dose 81 MG 1 tablet Orally Once a day for 30 day(s) Active IMMUNIZATIONS Vaccine Route Administration Date Status Comme nts Influenza Unknown 03/25/2023 Administered Influenza Unknown 09/04/2018 Refused SOCIAL HISTORY Tobacco Use: Social History Observation Description Date Details (start date - stop date) Never Smoker NA - NA Sex Assigned At : Social History Observation Description Sex Assigned At Unknown Tobacco Use/Smoking Question Answer Notes Patient is a nonsmoker Alcohol Screen Question Answer Notes Did you have a drink contain ing alcohol in the past year? Yes How often did you have a dri nk containing alcohol in the past year? Monthly or less (1 point) How many drinks did you have on a typical day when you were drinking in the past year? 1 or 2 drinks (0 point) How often did you have 6 or more drinks on one occasion in the past year? Never (0 point) Points 1 Interpretation Negative PROBLEMS Problem Type ICD Code Onset Dates Problem Status W/U Status Risk SNOMED Code Notes Problem Colon cancer screening (Z12.11) Active confirmed 351568497 Problem Personal history of colonic polyps (Z86.010) Active confirmed 698147698 Problem Encounter for other preprocedural examination (Z01.818) Active confirmed 154271677 Problem Long-term use of aspirin therapy (Z79.82) Active confirmed 718196316 VITAL SIGNS Temperature 97.7 degrees Fahrenheit 12/31/2023 Blood pressure diastolic 00 mm Hg 12/31/2023 Height 72 in 12/31/2023 Blood pressure systolic 000 mm Hg 12/31/2023 Weight 233 lb 2 oz lbs 12/31/2023 BMI 31.61 kg/m2 12/31/2023 Encounters Encounter Location Date Provider Diagnosis [facility] [place] Outpatient [address] [place] [phone] 02/27/2024 Shravan Alberto Jr Colon cancer screening Z12.11 and Colon polyps K63.5 [facility] [address] [place] [phone] 12/31/2023 Shravan Alberto Jr Colon cancer screening Z12.11 ; Long-term use of aspirin therapy Z79.82 and Personal history of colonic polyps Z86.010 [facility] [address] [place] [phone] 02/24/2024 Shravan Alberto Jr [facility] [address] [place] [phone] 02/26/2024 Shravan Alberto Jr [facility] [address] [place] [phone] 03/04/2024 Shravan Alberto Jr ASSESSMENTS Encounter Date Diagnosis Assessment Notes Treatment Notes Treatment Clinical Notes 02/27/2024 Colon cancer screening (ICD-10 - Z12.11) 02/27/2024 Colon polyps (ICD-10 - K63.5) 12/31/2023 Colon cancer screening (ICD-10 - Z12.11) Colonoscopy material was printed 12/31/2023 Long-term use of aspirin therapy (ICD-10 - Z79.82) 12/31/2023 Personal history of colonic polyps (ICD-10 - Z86.010) PLAN OF TREATMENT Pending Test Test Name Order Date COLONOSCOPY WITH BIOPSY 02/22/2011 Future Test Test Name Order Date COLONOSCOPY 09/04/2018 COLONOSCOPY 12/31/2023 Insurance Providers Payer Name Payer Address Payer Phone Subscriber Number Group Number Insured Name Patient Relationship to Insured Coverage Start Date Coverage End Date [employer] ([employer]) [address] [place] [address] [phone] [id number] RENATE ATKINSON Self - patient is the insured MEDICAL (GENERAL) HISTORY Medical History History ICD Code Hypertension Gastroesophageal reflux disease Hyperlipidemia Arthritis Coronary artery disease Surgical History Surgery Date(Month/Year) Cardiac stent placement 03/23
[2024-04-20 07:27] LABS: MANUAL DIFF FLAG NO
[2024-04-20 08:33] LABS: Basophils Absolute Auto 0.1 X10*3/uL (0.0-0.2); Basophils Percent Auto 0.8 % (0-2); Eosinophils Absolute Auto 0.4 X10*3/uL (0.0-0.4); Eosinophils Percent Auto 6.5 % (0-4); Hematocrit 42.1 % (42.0-52.0); Hemoglobin 14.9 g/dl (14.0-18.0); Imm Gran Abs Auto 0.02 X10*3/uL (0.00-0.03); Imm Gran Pct Auto 0.3 % (0.0-0.4); Mean Corpuscular HGB Conc 35.4 g/dl (31.0-36.0); Mean Corpuscular Hemoglobin 31.6 pg (27.0-33.0); Mean Corpuscular Volume 89.4 fL (80.0-98.0); Mean Platelet Volume 10.5 fL (9.4-12.4); Monocytes Absolute Auto 0.6 X10*3/uL (0.1-1.2); Monocytes Percent Auto 8.3 % (2-11); Neutrophils Absolute Auto 3.6 x10*3/uL (2.0-8.3); Neutrophils Percent Auto 54.1 % (45-73); Platelet Count 219 X10*3/uL (160-400); Red Blood Count 4.71 X10*6/uL (4.60-5.80); Red Cell Distribution Width 12.4 % (11.0-16.0); White Blood Count 6.6 X10*3/uL (4.8-10.8)
[2024-04-20 09:06] LABS: Alanine Aminotransferase 47 U/L (0-40); Albumin Level 4.5 g/dL (3.5-5.0); Alkaline Phosphatase 73 U/L (39-117); Anion Gap 10 (12-20); Aspartate Amino Transferase 31 U/L (5-37); Bilirubin Total 0.6 mg/dL (0.0-1.0); Blood Urea Nitrogen 14 mg/dL (9-16); Calcium 9.2 mg/dL (8.4-10.2); Carbon Dioxide 26 mmol/L (22-29); Chloride 107 mmol/L (96-108); Cholesterol 138 mg/dL (<200); Estimated Glomerular Filt Rate > 60; Glucose Fasting 116 mg/dL (60-99); HDL Cholesterol 39 mg/dL (>40); LDL Cholesterol Calculated 75 mg/dL (<100); Potassium 4.2 mmol/L (3.3-5.1); Sodium 139 mmol/L (135-145); Total Protein 7.6 g/dL (6.5-8.0); Triglycerides 124 mg/dL (<150)
[2024-04-20 09:18] LABS: Prostate Specific Antigen 0.44 ng/mL (<0.05-4.0)
[2024-04-20 10:15] LABS: Appearance Urine Clear; Color Urine Yellow; Glucose Urine UA Negative (Negative); Leukocyte Esterase Urine Negative (Negative); Nitrite Urine Negative (Negative); PH 5.5 (5.0-9.0); Urine Blood Negative (Negative); Urine Ketones Negative (Negative); Urine Protein Negative (Neg-Trace)
== END 2024-04-20 07:08 | disposition home or self-care (01) ==
LOC: HO.LAB 07:07
PROVIDERS: PCP Internal Medicine; Visit Provider Internal Medicine
DX: I10 Essential (primary) hypertension (principal); K21.9 Gastro-esophageal reflux disease without esophagitis; E78.00 Pure hypercholesterolemia, unspecified; Z12.5 Encounter for screening for malignant neoplasm of prostate
CPT/HCPCS: 36415; 80053; 80061; 81003; 84153; 85025

== ENCOUNTER 2025-01-12 14:12 | Outpatient (AMB) | payer OTHER, MEDICARE, SELFPAY ==
--- OUTSIDE RECORDS SUMMARY | 2024-02-27 04:20 | XMS_ITS ---
Author Organization [facility] Address [address] [place] [address] Care Team Providers Care Liquid Center Assembler Name Role Phone Shannan (RETIRED) Raphael REID Primary Care Provide Shravan Gibbons Jr REASON FOR VISIT screening Encounters Encounter Location Date Provider Diagnosis [facility] [place] [facility] [address] [place] [id number] 02/27/2024 Shravan Alberto Jr Colon cancer screening Z12.11 and Colon polyps K63.5 Assessments Encounter Date Diagnosis (ICD Code) Assessment Notes Treatment Notes Treatment Clinical Notes Section Notes 02/27/2024 Colon cancer screening (ICD-10 - Z12.11) 02/27/2024 Colon polyps (ICD-10 - K63.5) Plan Of Treatment No Information Progress Notes * [place] RENATE SimmonsDOB:[birth year] (64 yo M)Acc No.[id number]:02/27/2024 COLON WITH MAC Patient: RENATE MUSE Troy Provider: Fer Alberto MD :1960 A ge:63 Y S ex:Male Date:02/27/2024 Address:[address] [place], [place] Pcp:Raphael Campbell (RETIRED )MD Subjective: * Chief Complaints: * 1 . Screening. * Medical History: Objective: * Vitals: Assessment: * Assessment: 1. C olon cancer screening - Z12.11 (Primary) 2 . C olon polyps - K63.5? Plan: * Treatment: * Procedure Codes: 4 5385 LESION REMOVAL COLONOSCOPY, 0529F INTRVL 3+YRS PTS CLNSCP DOCD, 0528F RCMND FLW-UP 10 YRS DOCD, Modifiers: 1P * * The named appointment provid er may or may not be the originator of this progress note, and it is not deemed complete until electronically signed by the appointment provider. Sign off status: Pending * Provider: Fer Alberto MD Date: 1 Generated for Delonte jeong/Adi/Cornelioitting on: 0 01/12/2025 05:28 PM EDT
--- NOTE | 2025-01-12 14:22 | A.OFFPC_ITS ---
Vital Signs 01/12/25 14:27 01/12/25 14:53 Height 6 ft Weight 106.141 kg BMI 31.7 BP 140/90 H 134/86 Respiration 14 Pulse 73 Temp 97.4 F Temp Source Temporal Artery Scan Pulse Oximetry (%) 97 Oxygen Delivery Method Room Air Intake Visit Reasons: Annual English Teacher Required: No Accompanied by: Self / Same As Patient Allergies No Known Allergies Allergy (Verified 01/12/25 14:25) Medication List - Last Reconciled 01/12/25 by JEFF Quinteros amlodipine 10 MG ORALLY DAILY aspirin (Ecotrin Low Strength) 81 mg PO DAILY cholecalciferol (vitamin D3) (Vitamin D3) 5,000 units PO DAILY multivitamin 1 tab PO DAILY omeprazole 20 mg PO DAILY rosuvastatin 40 mg PO DAILY 90 days tadalafil 5 mg PO Q3D PRN tizanidine 4 mg PO BEDTIME PRN Tobacco use date assessed: 01/12/25 Fall risk assessment: No Falls in past year Last assessed Fall Risk: 01/12/25 Dental Screening Dental Screen Date: 01/12/25 Did you have a dental visit in the last 12 months?: Yes Did you have a dental problem in the last 6 months where you did not have access to dental care?: No Was dental information given to patient?: No HPI HPI Comments History of Present Illness Details 64-year-old male with history of CAD, hy pertension, hyperlipidemia, GERD, erectile dysfunction presenting to the office today for management of chronic conditions, to establish care, and for annual physical exam. Last PCP Dr. Campbell, last seen a little over a year. Occasional beer. No history of cigarettes. No drugs. Works in [employer] currently. Follows a healthy diet. Exercises with hockey, hiking. He does endorse drinking 3 coffees per day. CAD/HTN/HLD-following with Dr. Edward. S/p PCI with [facility] to the RCA 03/2019. On baby aspirin, rosuvastatin. Also using amlodipine. Blood pressure in the office today initially 140/90, on recheck 134/86. checks BP at home and is WNL GERD-Prilosec 20 mg daily Basal cell carcinoma- 2009. Following with [facility] Obesity-BMI 31.7 Concerns: Low back strain ongoing x1 week. Improving. Using ibuprofen, icy Hot, lidocaine patches. Improved by walking Health maintenance: Last colonoscopy 02/2024 with 5 year follow-up recommended due to tubular adenoma. Dr. Alberto PSA up-to-date Eye exams up to date, goes to [facility]. Wears corrective lenses. Dental exams twice a year, Family Dental Skin exam is as above Reviewed past medical, surgical, family, social history. ROS: General: No fevers, malaise, unintentional weight loss HEENT: No blurred vision, diplopia. No sore throat, nasal congestion, rhinorrhea, sinus pain, ear pain. No hearing loss Neck - no adenopathy Cardiovascular: No chest pain, palpitations, or leg edema Respiratory: No shortness of breath, wheezing, cough GI: No dysphagia, odynophagia, globus sensation. No abdominal pain, nausea, vomiting, diarrhea, constipation, melena, hematochezia : No dysuria, hematuria, increased urinary frequency, decreased urinary output. No testicular swelling or pain. No penile discharge MSK: No myalgia, back pain, arthralgias Neuro: No headaches, weakness, paresthesias Psych: no depression/anxiery. No AH/VH. No SI/HI Skin: No rashes or lesions EXAM: Constitutional - Awake and Alert, No apparent distress Eyes - PERRLA, EOMI. Anicteric Ears - external ears normal, canals clear, TMs intact and pearly crystal with good cone of light Nose- septum midline, nares clear, no sinus tenderness Mouth/throat- mucosa moist, tongue and uvula midline, no erythema/edema or tonsillar adenopathy. Neck-trachea midline, thyroid symmetric without palpable nodules, no adenopathy Cardiovascular - S1S2, RRR, No edema Respiratory - Normal lung expansion, Normal respiratory effort, No respiratory distress, CTA bilaterally Gastrointestinal - NT / ND; +BS; No rebound or guarding - No CVA tenderness Extremities - no calf tenderness bilaterally, no swelling Musculoskeletal - Normal inspection, normal ROM Skin - Warm/Dry, no concerning lesions Neurological - Alert & oriented x3, CN II-XII in tact, 5/5 strength BUE and BLE, 2+ patellar reflexes, sensation intact Psychological - Appropriate affect PFSH Medical History Basal cell carcinoma of shoulder Arthritis GERD (gastroesophageal reflux disease) HTN (hypertension) Hyperlipidemia CAD (coronary artery disease) Surgical History History of colonoscopy History of heart artery stent Hx of cardiac cath Family History Father CVD (cardiovascular disease) Mother CVD (cardiovascular disease) HTN (hypertension) Social History Housing: House Alcohol intake: current Alcohol intake frequency: holidays/special occasions only Patient Tobacco Use Status: Never used Tobacco e-Cigarette/Vaping Use: Never Used service: No Current occupational status: employed 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, 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 [employer] Cognitive needs: No Hearing needs: No Vision needs: Yes (Rx glasses) Physical exam (Primary Care) Vital Signs: Last Vital Signs Temp 97.4 F 01/12/25 14:27 Pulse 73 01/12/25 14:27 Resp 14 01/12/25 14:27 BP 140/90 H 01/12/25 14:27 Pulse Ox 97 01/12/25 14:27 Oxygen Delivery Method Room Air 01/12/25 14:27 BMI result Body Mass Index 31.7 Tobacco/Smoking Status: Tobacco use Status Tobacco use date assessed 01/12/25 01/12/25 14:30 Patient Tobacco Use Status Never used Tobacco 01/12/25 14:30 e-Cigarette/Vaping Use Never Used 01/12/25 14:30 Coding Level of Care Code Est Pt Level 4 (17022) New Pt Prev Care >65yr (89194) Diagnoses Routine medical exam Z00.00 Hyperlipidemia E78.5 CAD (coronary artery disease) I25.10 HTN (hypertension) I10 Assessment & Plan Assessment & Plan (1) Routine medical exam: Code(s): Z00.00 - Encounter for general adult medical examination without abnormal f indings Plan: . 64-year-old male presenting for annual physical exam. Plan as below (2) Hyperlipidemia: Code(s): E78.5 - Hyperlipidemia, unspecified Category: Medical Plan: Lipid panel ordered. Continue Crestor 40 mg daily. Diet low in saturated fats and highly processed foods (3) CAD (coronary artery disease): Code(s): I25.10 - Atherosclerotic heart disease of [place] coronary artery without angina pectoris Category: Medical Plan: Stable. Continue following with Cardiology, reviewed most recent cardiology note. Continue baby aspirin, Crestor. (4) HTN (hypertension): Code(s): I10 - Essential (primary) hypertension Category: Medical Plan: Controlled on recheck. Continue amlodipine continue monitoring blood pressures at home Plan Routine screening labs as ordered below Continue with screening colonoscopies and PSA Continue following for annual skin exams and use sun protection Annual eye exams Wear seat belt in car Recommend regular exercise and healthy diet Follow up in 6 months Tizanidine sent for low back pain/spasm. Continue with ibuprofen occasionally, icy hot, lidocaine patches and gentle [id number] exercises Medications: New tizanidine 4 mg PO BEDTIME PRN 10 caps 0RF muscle spasticity
[2025-01-12 14:27] VITALS: BP 140/90; PULSE 73; RESP 14; TEMP 36.3; O2SAT 97; BMI 31.7
[2025-01-12 14:53] VITALS: BP 134/86
--- OUTSIDE RECORDS SUMMARY | 2025-01-12 17:28 | XMS_ITS | Patient Health Record ---
Author Organization [facility] Address [address] [place] [address] Care Team Providers Care Tromper Name Role Phone Shannan (RETIRED) Raphael REID Primary Care Provide Shravan Gibbons Jr Allergies No Known Allergies Results Component Value Reference Range Notes Pathology Reviewed date:03/04/2024 07:49:11 AM Interpretation: Performing Lab:[facility], [address] [place] [id number] Notes/Report: Reason For Referral No Information Medications Medication SIG (Take, Route, Frequency, Duration) Notes [...] Once a day for 30 day(s) Active Immunizations Vaccine Route Administration Date Status Comme nts Influenza Unknown 03/25/2023 Administered Influenza Unknown 09/04/2018 Refused Social History Tobacco Use: Social History Observation Description Date Details (start date - stop date) Never Smoker NA - NA Tobacco Use/Smoking Question Answer Notes Patient is [...] Never (0 point) Points 1 Interpretation Negative Problems Problem Type SNOMED Code ICD Code Onset Dates Problem Status W/U Status Risk Notes Problem 514704103 Colon cancer screening (Z12.11) Active confirmed Problem 618042874 Personal history of colonic polyps (Z86.010) Active confirmed Problem 056980925 Encounter for other preprocedural examination (Z01.818) Active confirmed Problem 277240647 Long-term use of aspirin therapy (Z79.82) Active confirmed Encounters Encounter Location Date Provider Diagnosis [facility] [place] [facility] [address] [place] [id number] 02/27/2024 Shravan Alberto Jr Colon cancer screening Z12.11 and Colon polyps K63.5 [facility] [address] [place] [phone] 02/24/2024 Shravan Alberto Jr [facility] [address] [place] [phone] 02/26/2024 Shravan Alberto Jr [facility] [address] [place] [phone] 03/04/2024 Shravan Alberto Jr Assessments Encounter Date Diagnosis (ICD Code) Assessment Notes Treatment Notes Treatment Clinical Notes Section Notes 02/27/2024 Colon cancer screening (ICD-10 - Z12.11) 02/27/2024 Colon polyps (ICD-10 - K63.5) Plan Of Treatment Pending Test Test Name Order Date COLONOSCOPY WITH BIOPSY 02/22/2011 Future Test Test Name Order Date COLONOSCOPY 09/04/2018 COLONOSCOPY 12/31/2023 Insurance Providers Payer Name Payer Address Payer Phone Subscriber Number Group Number Insured Name Patient Relationship to Insured Coverage Start Date Coverage End Date [facility] [id number] [id number] RENATE ATKINSON Self - patient is the insured Medical (General) History Medical History History ICD Code Hypertension Gastroesophageal reflux disease Hyperlipidemia Arthritis Coronary artery disease Surgical History Surgery Date(Month/Year) Cardiac stent placement 03/23
== END 2025-01-12 15:05 | disposition home or self-care (01) ==
LOC: HO.HMCHD 14:13
PROVIDERS: PCP Internal Medicine; Visit Provider Physician Assistant
DX: Z00.00 Encounter for general adult medical examination without abnormal findings (principal); E78.5 Hyperlipidemia, unspecified; I25.10 Atherosclerotic heart disease of native coronary artery without angina pectoris; I10 Essential (primary) hypertension

== ENCOUNTER 2025-03-24 08:33 | Outpatient (REF) | payer MEDICARE, OTHER, SELFPAY ==
[2025-03-24 10:34] LABS: Hematocrit 42.8 % (42.0-52.0); Hemoglobin 14.8 g/dl (14.0-18.0); Mean Corpuscular HGB Conc 34.6 g/dl (31.0-36.0); Mean Corpuscular Hemoglobin 31.5 pg (27.0-33.0); Mean Corpuscular Volume 91.1 fL (80.0-98.0); NRBC Abs Auto 0.000 X10*3/uL (0.0-0.012); NRBC Pct Auto 0.0 /100WBC (0.0-0.2); Platelet Count 195 X10*3/uL (160-400); Red Blood Count 4.70 X10*6/uL (4.60-5.80); White Blood Count 6.1 X10*3/uL (4.8-10.8)
[2025-03-24 11:19] LABS: Anion Gap 12 (12-20); Blood Urea Nitrogen 17 mg/dL (9-16); Calcium 9.4 mg/dL (8.4-10.2); Carbon Dioxide 25 mmol/L (22-29); Chloride 108 mmol/L (96-108); Cholesterol 116 mg/dL (<200); Estimated Glomerular Filt Rate > 60; HDL Cholesterol 40 mg/dL (>40); Potassium 4.3 mmol/L (3.3-5.1); Sodium 141 mmol/L (135-145); Triglycerides 78 mg/dL (<150)
== END 2025-03-24 08:34 | disposition home or self-care (01) ==
LOC: HO.LAB 08:33
PROVIDERS: PCP Internal Medicine; Visit Provider Internal Medicine Cardiovascular Disease
DX: I25.10 Atherosclerotic heart disease of native coronary artery without angina pectoris (principal); I35.0 Nonrheumatic aortic (valve) stenosis; I10 Essential (primary) hypertension; E78.5 Hyperlipidemia, unspecified; Z79.899 Other long term (current) drug therapy
CPT/HCPCS: 36415; 80048; 80061; 85027; 86141; 93005

== ENCOUNTER 2025-03-24 08:33 | Outpatient (AMB) | payer OTHER, SELFPAY ==
--- OUTSIDE RECORDS SUMMARY | 2024-02-27 03:20 | XMS_ITS ---
Author Organization [facility] Address [address] [place] [address] Care Team Providers Care Liner Man Name Role Phone Shannan (RETIRED) Raphael REID Primary Care Provide Shravan Gibbons Jr REASON FOR VISIT screening Encounters Encounter Location Date Provider Diagnosis [facility] [place] [facility] [address] [place] [id number] 02/27/2024 Shravan Alberto Jr Colon cancer screening Z12.11 and Colon polyps K63.5 Assessments Encounter Date Diagnosis (ICD Code) Assessment Notes Treatment Notes Treatment Clinical Notes Section Notes 02/27/2024 Colon cancer screening (ICD-10 - Z12.11) 02/27/2024 Colon polyps (ICD-10 - K63.5) Plan Of Treatment No Information Progress Notes * RENATE ATKINSONDOB:[birth year] (64 yo M)Acc No.[id number]:02/27/2024 COLON WITH MAC Patient: RENATE MUSE Troy Provider: Fer Alberto MD :1960 A ge:63 Y S ex:Male Date:02/27/2024 Address:[address] [place], [place] Pcp:Raphael Campbell (RETIRED )MD Subjective: * Chief Complaints: * S creening Assessment: * Assessment: 1. C olon cancer screening - Z12.11 (Primary) 2 . C olon polyps - K63.5? Plan: * Procedure Codes: 4 5385 LESION REMOVAL [id number] INTRVL 3+YRS PTS CLNSCP [id number] RCMND FLW-UP 10 YRS DOCD, Modifiers: 1P Billing Information: * Procedure Codes: 63251 LESION REMOVAL COLONOSCOPY. 0529F INTRVL 3+YRS PTS CLNSCP DOCD. 0528F RCMND FLW-UP 10 YRS DOCD. Modifiers: 1P * The named appointment provid er may or may not be the originator of this progress note, and it is not deemed complete until electronically signed by the appointment provider. Sign off status: Pending * Provider: Fer Alberto MD Date: Generated for Delonte jeong/Adi/Cornelioitting on: 05/24/2024 09:41 AM EST
--- NOTE | 2025-03-24 08:38 | MHC.OFFVIS ---
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 He said in January he hurt his back/gluteal muscle and since then he has been having issues with sciatica. This is limited in his overall activity level although he still tries to remain active as much as possible. He has gained some weight. Denies any exertional chest pain or shortness of breath prior to that and after that. Denies any orthopnea, PND, leg edema. No shortness of breath. No lightheadedness, syncope. Taking all his medications. [facility], [facility] Medical History Basal cell carcinoma of shoulder Arthritis GERD (gastroesophageal reflux disease) HTN (hypertension) Hyperlipidemia CAD (coronary artery disease) Surgical History History of colonoscopy History of heart artery stent Hx of cardiac cath Family History Father CVD (cardiovascular disease) Mother CVD (cardiovascular disease) HTN (hypertension) Social History Housing: House Alcohol intake: current Alcohol intake frequency: holidays/special occasions only Patient Tobacco Use Status: Never used Tobacco e-Cigarette/Vaping Use: Never Used service: No Current occupational status: employed 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, 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 [employer] Cognitive needs: No Hearing needs: No Vision needs: Yes (Rx glasses) Review of Systems Const Denies daytime sleepiness, Denies difficulty sleeping, Denies snoring, Denies stops breathing during sleep and Denies weakness Card Denies chest pain, Denies rapid heart rate, Denies irregular heart rhythm, Denies claudication, Denies leg edema, Denies lightheadedness, Denies palpitations, Denies dyspnea, Denies dyspnea on exertion, Denies orthopnea, Denies paroxysmal nocturnal dyspnea and Denies slow heart rate Resp Denies cough, Denies dyspnea, Denies dyspnea on exertion and Denies snoring GI Reports no additional complaints, Denies hematochezia, Denies change in stool character and Denies dyspepsia Musc Denies abnormal gait, Denies muscle weakness and Denies numbness Neuro Denies abnormal gait, Denies numbness and Denies weakness Endo Denies palpitations Physical Exam Vital Signs: Last Vital Signs Pulse 55 03/24/25 08:39 BP 132/84 03/24/25 08:39 BMI result Body Mass Index 32.8 Const General: cooperative, comfortable, no acute distress, well developed, alert and awake Nutritional Appearance: well nourished and overweight Orientation/consciousness: patient oriented x3 Limitations: no limitations HEENT Head: Yes normocephalic and Yes atraumatic Eyes General: appearance normal, both eyes and all related structures Neck Neck: Yes trachea midline, Yes supple and Yes no JVD Chest Chest palpation & inspection: normal inspection of the chest Resp Effort & Inspection: normal respiratory effort Auscultation: clear to auscultation bilaterally Cardio Jugular venous distension: no JVD Palpation: normal PMI Rate: regular rate Rhythm: regular rhythm Heart sounds: S1 normal heart sound present, S2 normal heart sound present, no click, no gallops and Murmur heart sound present systolic early GI Auscultation: normal bowel sounds Skin General skin exam: no rashes or lesions noted Neuro General: patient oriented x3 and no focal motor deficits Extrem General: Yes no clubbing, cyanosis or edema Psych Appearance: grossly normal Affect: Anxious affect present Office Procedures EKG Details: EKGs shows sinus bradycardia at 55 beats per minute otherwise normal EKGs [id number], Complete Assessment & Plan Assessment & Plan (1) CAD (coronary artery disease): Code(s): I25.10 - Atherosclerotic heart disease of [place] coronary artery without angina pectoris Category: Medical Plan: CAD with prior drug-eluting stent x2 to RCA for complicated coronary disease for typical symptoms of exertional angina. He is doing well at current point time with good functional capacity. He has recently not been able to participate in regular physical activity due to his sciatica. But he is motivated to do the same. Encouraged to continue to participate once his symptoms improved to regular physical activity. Continue lifelong aspirin therapy. Continue high-intensity statin therapy with target goal LDL closer to 60 mg/dL. Advised lipid panel which she is going to go today. Further treatment based on the findings of lipid panel. Aggressive blood pressure control was recommended. Advised to call me with any new exertional symptoms. (2) Aortic stenosis: Code(s): I35.0 - Nonrheumatic aortic (valve) stenosis Category: Medical Plan: Clinical findings suggestive of mild aortic stenosis. Will follow-up echocardiogram at this point time. Continue aggressive vascular risk factor modification as above. (3) HTN (hypertension): Code(s): I10 - Essential (primary) hypertension Category: Medical Plan: Hypertension which is currently well optimized advised to monitor blood pressure at home maintain a log. Goal blood pressure less than 130/84. Low-salt diet was discussed. Advised to participate in lifestyle modification with ideal body weight as well as regular physical activity. He understands and agrees. Stress mitigation strategies. Will follow up in the clinic in 1 year's time, sooner PRN. Thank you for allowing me to partake in his care Orders: Orders Lipid Panel Today I25.10 - Atherosclerotic heart disease of [place] coronary artery without angina pectoris Basic Metabolic Panel Today I25.10 - Atherosclerotic heart disease of [place] coronary artery without angina pectoris Complete Blood Count no Diff Today I25.10 - Atherosclerotic heart disease of [place] coronary artery without angina pectoris CRP High Sensitivity Today E78.5 - Hyperlipidemia, unspecified, I25.10 - Atherosclerotic heart disease of [place] coronary artery without angina pectoris CA echo transthoracic complete Today I35.0 - Nonrheumatic aortic (valve) stenosis Medications: Refilled rosuvastatin 40 mg PO DAILY 90 tabs 3RF I35.0 - Nonrheumatic aortic (valve) stenosis amlodipine 10 mg PO DAILY 90 tabs 3RF I35.0 - Nonrheumatic aortic (valve) stenosis Coding Level of Care Code Est Pt Level 4 (09802) Complex EM visit Add On G2211 Diagnoses CAD (coronary artery disease) I25.10 Aortic stenosis I35.0 HTN (hypertension) I10 CPT Codes EKG - CPT: 58580-[id number], Complete ([id number])
[2025-03-24 08:39] VITALS: BP 132/84; PULSE 55; BMI 32.8
--- OUTSIDE RECORDS SUMMARY | 2025-03-24 09:41 | XMS_ITS | Patient Health Record ---
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 the day before the procedure; Duration: 1 day 12/31/2023 Active amLODIPine Besy-Benazepril HCl 5-10 MG Capsule as directed Orally Ac tive Multivitamin Adult - Tablet as directed Orally Active Vitamin D3 Maximum Strength 5000 UNIT Capsule 1 capsule Orally Once a day; Duration: 30 day(s) Active Aspirin Adult Low Dose 81 MG Tablet Delayed Release 1 tablet Orally Once a day; Duration: 30 day(s) Active Immunizations Vaccine Route Administration Date Status Comme nts Influenza Unknown 09/04/2018 Refused Influenza Unknown 03/25/2023 Administered Social History Tobacco Use: Social History Observation Description Date Details (start date - stop date) Never Smoker NA - NA Social History Drugs/Alcohol: Social Info Question Answer Notes Alcohol Screen Did you have a drink containing alcohol in the past year? Yes How often did you have a drink containing alcohol in the past year? Monthly or less (1 point) How many drinks did you have on a typical day when you were drinking in the past year? 1 or 2 drinks (0 point) How often did you have 6 or more drinks on one occasion in the past year? 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 Problems Problem Type SNOMED Code ICD Code Onset Dates Problem Status W/U Status Risk Notes Problem Colon cancer screening (381288986) Colon cancer screening (Z12.11) Active confirmed Problem History of polyp of colon (situation) (477943715) Personal history of colonic polyps (Z86.010) Active confirmed Problem Pre-procedure evaluation check (691002618) Encounter for other preprocedural examination (Z01.818) Active confirmed Problem Long-term current use of antiplatelet drug (487932616474077 ) Long-term use of aspirin therapy (Z79.82) Active confirmed Plan Of Treatment Pending Test Test Name Order Date COLONOSCOPY WITH BIOPSY 02/22/2011 Future Test Test Name Order Date COLONOSCOPY 09/04/2018 COLONOSCOPY 12/31/2023 Insurance Providers Payer Name Payer Address Payer Phone Subscriber Number Group Number Insured Name Patient Relationship to Insured Coverage Start Date Coverage End Date [facility] Insurance ([employer]) [id number] [id number] RENATE ATKINSON Self - patient is the insured Medical (General) History Medical History History ICD Code Hypertension Gastroesophageal reflux disease Hyperlipidemia Arthritis Coronary artery disease Surgical History Surgery Date(Month/Year) Cardiac stent placement 03/23
== END 2025-03-24 09:06 | disposition home or self-care (01) ==
LOC: HO.HCS 08:34
PROVIDERS: PCP Internal Medicine; Visit Provider Internal Medicine Cardiovascular Disease
DX: I25.10 Atherosclerotic heart disease of native coronary artery without angina pectoris (principal); I35.0 Nonrheumatic aortic (valve) stenosis; I10 Essential (primary) hypertension
CPT/HCPCS: 93010; 99214

== ENCOUNTER 2025-04-06 06:24 | Outpatient (REF) | payer MEDICARE, OTHER, SELFPAY ==
[2025-04-06 06:33] LABS: MANUAL DIFF FLAG NO
[2025-04-06 07:21] LABS: Hematocrit 40.8 % (42.0-52.0); Hemoglobin 14.1 g/dl (14.0-18.0); Imm Gran Abs Auto 0.01 X10*3/uL (0.00-0.03); Imm Gran Pct Auto 0.2 % (0.0-0.4); Lymphocytes Absolute Auto 2.1 X10*3/uL (1.2-4.9); Mean Corpuscular HGB Conc 34.6 g/dl (31.0-36.0); Mean Corpuscular Hemoglobin 31.3 pg (27.0-33.0); Mean Corpuscular Volume 90.7 fL (80.0-98.0); NRBC Abs Auto 0.000 X10*3/uL (0.0-0.012); NRBC Pct Auto 0.0 /100WBC (0.0-0.2); Platelet Count 201 X10*3/uL (160-400); Red Blood Count 4.50 X10*6/uL (4.60-5.80); White Blood Count 6.2 X10*3/uL (4.8-10.8)
[2025-04-06 07:47] LABS: Alanine Aminotransferase 46 U/L (0-40); Albumin Level 4.7 g/dL (3.5-5.0); Alkaline Phosphatase 75 U/L (39-117); Anion Gap 13 (12-20); Aspartate Amino Transferase 35 U/L (5-37); Blood Urea Nitrogen 19 mg/dL (9-16); Calcium 9.2 mg/dL (8.4-10.2); Carbon Dioxide 25 mmol/L (22-29); Chloride 107 mmol/L (96-108); Cholesterol 120 mg/dL (<200); Estimated Glomerular Filt Rate 56; HDL Cholesterol 38 mg/dL (>40); Potassium 4.3 mmol/L (3.3-5.1); Sodium 141 mmol/L (135-145); Total Protein 7.2 g/dL (6.5-8.0); Triglycerides 82 mg/dL (<150)
[2025-04-06 08:02] LABS: Prostate Specific Antigen 0.34 ng/mL (<0.05-4.0)
== END 2025-04-06 06:25 | disposition home or self-care (01) ==
LOC: HO.LAB 06:24
PROVIDERS: PCP Physician Assistant; Visit Provider Physician Assistant
DX: Z00.00 Encounter for general adult medical examination without abnormal findings (principal); Z12.5 Encounter for screening for malignant neoplasm of prostate; Z13.6 Encounter for screening for cardiovascular disorders; Z13.21 Encounter for screening for nutritional disorder
CPT/HCPCS: 36415; 80048; 80061; 80076; 82306; 84153; 85025